=== PATIENT | female | born 1980 | race Two or more races ===

== ENCOUNTER 2022-08-04 04:50 | Day surgery (SDC) | payer OTHER ==
[~2022-08-04] VITALS: Ht 152.4 cm; Wt 68.0 kg
[2022-08-04] MEDS ORDERED: TRAM1TAB98 PO (09:01)
== END 2022-08-04 11:50 | disposition home or self-care (01) ==
LOC: CIR.AMB 04:50
PROVIDERS: ATTEND Obstetrics & Gynecology
DX: Z30.2 Encounter for sterilization (principal); N83.8 Other noninflammatory disorders of ovary, fallopian tube and broad ligament; R10.2 Pelvic and perineal pain; Z64.1 Problems related to multiparity; Z20.822 Contact with and (suspected) exposure to COVID-19